=== PATIENT | female | born 1980 | race Hispanic/Latino ===

== ENCOUNTER 2017-12-04 13:52 | Emergency (ER) | payer MEDICAID ==
[~2017-12-04 13:52] MED LIST: DOCU-116 PO; IBUP-2071 PO; METO25TA6 PO; PREN1TAB89 PO
[2017-12-04] MEDS ORDERED: LORAZEPAM 2 MG/ML 1 ML VIAL ONE (15:03)
== END 2017-12-04 15:24 | disposition home or self-care (01) ==
LOC: EDH 13:52
DX: F41.0 Panic disorder [episodic paroxysmal anxiety] (principal); R20.2 Paresthesia of skin; I10 Essential (primary) hypertension; D64.9 Anemia, unspecified; Z88.0 Allergy status to penicillin; Z79.899 Other long term (current) drug therapy
CPT/HCPCS: 99283; J2060

== ENCOUNTER 2018-04-22 19:08 | Emergency (ER) | payer MEDICAID ==
[2018-04-22 19:50] LABS: BASOPHILS % (AUTO) 0.9 % (0.0-5.0); EOSINOPHILS % (AUTO) 2.1 % (0.0-8.0); HEMATOCRIT 41.1 % (36-48); LYMPHOCYTES % (AUTO) 44.1 % (21.0-51.0); MEAN CORPUSCULAR HEMOGLOBIN 28.2 pg (27.0-33.0); MEAN CORPUSCULAR HGB CONC 33.4 g/dL (32.0-36.0); MEAN CORPUSCULAR VOLUME 84.5 fL (79-99); MONOCYTES % (AUTO) 8.1 % (3.0-13.0); NEUTROPHILS % (AUTO) 44.8 % (40.0-77.0); PLATELET COUNT (AUTO) 233 K/uL (130-400); RED BLOOD CELL COUNT(AUTO) 4.86 MIL/uL (4.00-5.50); RED CELL DISTRIBUTION WIDTH 12.7 % (11.0-15.5); WHITE BLOOD COUNT (AUTO) 7.5 K/uL (4.8-10.8)
[2018-04-22 19:59] LABS: CREATININE 0.7 mg/dL (0.5-1.5); POTASSIUM 4.1 mmol/L (3.5-5.1)
== END 2018-04-22 21:44 | disposition left against medical advice (07) ==
LOC: EDH 19:08
CPT/HCPCS: 36415; 71046; 80048; 81025; 82550; 84484; 85025; 93005

== ENCOUNTER 2018-05-10 15:04 | Emergency (ER) | payer MEDICAID ==
[2018-05-10 16:09] LABS: APPEARANCE,URINE CLOUDY (CLEAR); BILIRUBIN,URINE SMALL (NEGATIVE); COLOR,URINE YELLOW (YELLOW); GLUCOSE, URINE (UA) NEGATIVE (NEGATIVE); KETONES,URINE 40 mg/dL (NEGATIVE); LEUKOCYTE ESTERASE ,URINE TRACE (NEGATIVE); NITRATE,URINE NEGATIVE (NEGATIVE); OCCULT BLOOD,URINE SMALL (NEGATIVE); PROTEIN,URINE TRACE (NEGATIVE)
[2018-05-10 16:16] LABS: RAPID GROUP A STREP NEGATIVE (NEGATIVE)
[2018-05-10 16:20] LABS: HCG,QUAL RESULT NEGATIVE (NEGATIVE)
[2018-05-10 16:58] LABS: BACTERIA,URINE Moderate /HPF (None Seen); MUCUS,URINE Moderate LPF (None Seen); SQUAMOUS EPITHELIAL CELL,UR Moderate /HPF (0-2)
== END 2018-05-10 17:20 | disposition home or self-care (01) ==
LOC: EDH 15:04
DX: J06.9 Acute upper respiratory infection, unspecified (principal); I10 Essential (primary) hypertension; F41.9 Anxiety disorder, unspecified; Z88.0 Allergy status to penicillin
CPT/HCPCS: 81001; 81025; 87804; 87880

== ENCOUNTER 2019-06-25 09:25 | Emergency (ER) | payer MEDICAID | END 2019-06-25 10:52 | disposition home or self-care (01) | LOC: EDH 09:25 | DX: N60.11 Diffuse cystic mastopathy of right breast (principal); Z88.0 Allergy status to penicillin; I10 Essential (primary) hypertension; F41.9 Anxiety disorder, unspecified | CPT/HCPCS: 93005 ==